=== PATIENT | female | born 1990 | race Caucasian/White ===

== ENCOUNTER → 2018-03-15 | Outpatient (CLI) | payer BC ==
[2018-03-15 17:51] LABS: BASO # 0.1 10^3/uL (0.0-0.2); BASO % 0.8 % (0.0-1.0); EOS # 0.2 10^3/uL (0.0-0.50); EOS % 1.6 % (0.0-3.0); HEMATOCRIT 41.1 % (36.0-47.0); IMMATURE GRANULOCYTE % 0.4 % (0-3.0); LYMPH # 1.8 10^3/uL (1.5-6.5); LYMPH % 16.4 % (24.0-44.0); MEAN CORPUSCULAR HEMOGLOBIN 32.7 pg (27.0-33.0); MEAN CORPUSCULAR HGB CONC 34.1 g/dl (32.0-36.5); MONO # 0.9 10^3/uL (0.0-0.8); MONO % 8.2 % (0.0-5.0); NEUTROPHILS % 72.6 % (36.0-66.0); PLATELET COUNT, AUTOMATED 241 10^3/uL (150-450); RED BLOOD COUNT 4.28 10^6/uL (4.00-5.40); RED CELL DISTRIBUTION WIDTH 12.4 % (11.5-14.5); WHITE BLOOD COUNT 11.1 10^3/uL (4.0-10.0)
[2018-03-15 18:00] LABS: FREE T4 1.05 NG/DL (0.76-1.46)
[2018-03-15 18:16] LABS: PROLACTIN 20.1 NG/ML
== END ==
LOC: M WUC 12:43
DX: N92.1 Excessive and frequent menstruation with irregular cycle (principal)
CPT/HCPCS: 84146

== ENCOUNTER → 2018-10-23 | Outpatient (REF) | payer BC ==
[2018-10-23 18:19] LABS: HEMOGLOBIN 12.9 g/dl (12.0-15.5); MEAN CORPUSCULAR HEMOGLOBIN 30.5 pg (27.0-33.0); MEAN CORPUSCULAR HGB CONC 33.1 g/dl (32.0-36.5); MEAN CORPUSCULAR VOLUME 92.2 fl (80.0-96.0); PLATELET COUNT, AUTOMATED 235 10^3/uL (150-450); RED BLOOD COUNT 4.23 10^6/uL (4.00-5.40)
[2018-10-23 19:08] LABS: HCG, SERUM QUANTITATIVE 1286 MIU/ML
[2018-10-24 10:11] LABS: RUBELLA IgG QUALITATIVE IMMUNE (IMMUNE)
[2018-10-24 10:39] LABS: HEPATITIS C VIRUS ABY INDEX < 0.0 INDEX (<0.8)
[2018-10-24 12:03] LABS: HIV 1&2 SCREEN CENTAUR NEGATIVE (NEGATIVE)
== END ==
LOC: M LAB REF 16:50
PROVIDERS: ATTEND Nurse Practitioner Women's Health
DX: O36.80X0 Pregnancy with inconclusive fetal viability, not applicable or unspecified (principal); Z32.01 Encounter for pregnancy test, result positive

== ENCOUNTER → 2018-11-16 | Outpatient (CLI) | payer BC ==
--- NOTE | 2018-11-16 15:32 | REP ---
Clinical: Vaginal bleeding. Threatened . Technique: Transabdominal first trimester obstetrical ultrasound with color Doppler evaluation. Findings: Anteverted uterus measures 11.6 x 4.9 x 7.4 cm. Gestational sac with pole noted. CRL of 10.6 mm corresponds to 7 weeks 2 days gestational age, but no cardiac activity is appreciated and findings are compatible with demise. Maternal ovaries are normal in appearance. Right ovary measures 3.1 x 1.7 x 2.8 cm. Left ovary measures 3.2 x 2.1 x 2.3 cm with 1.9 cm corpus luteal cyst. Impression: Findings compatible with demise. Electronically Signed by Galindo Lyons MD 11/16/2018 03:22 P
== END ==
LOC: M RAD 14:37
PROVIDERS: ATTEND Nurse Practitioner Women's Health
DX: O20.0 Threatened abortion (principal)

== ENCOUNTER → 2018-11-26 | Outpatient (REF) | payer BC | LOC: M LAB REF 12:48 | PROVIDERS: ATTEND Nurse Practitioner Women's Health | DX: O02.1 Missed abortion (principal); Z3A.01 Less than 8 weeks gestation of pregnancy ==

== ENCOUNTER → 2018-12-03 | Outpatient (REF) | payer BC | LOC: M LAB REF 12:28 | PROVIDERS: ATTEND Nurse Practitioner Women's Health | DX: O02.1 Missed abortion (principal) ==

== ENCOUNTER → 2019-05-02 | Outpatient (CLI) | payer OTHER | LOC: M PLALAB 14:29 | PROVIDERS: ATTEND Advanced Practice Midwife | DX: O36.80X0 Pregnancy with inconclusive fetal viability, not applicable or unspecified (principal); Z3A.00 Weeks of gestation of pregnancy not specified ==

== ENCOUNTER → 2019-05-09 | Outpatient (CLI) | payer OTHER ==
--- NOTE | 2019-05-09 10:04 | REP ---
FIRST TRIMESTER ULTRASOUND: Real-time sonographic evaluation of the gravid uterus performed utilizing transabdominal technique. There is a single living intrauterine gestation. The estimated gestational age is 9 weeks 0 days based on a crown-rump length of 23 mm. EDC 12/12/2019. heart rate 179 beats per minute. Subchorionic hemorrhage is seen inferiorly measuring 3.0 x 2.2 x 5.0 cm. No maternal adnexal region abnormality is seen. Electronically Signed by Edd Berger MD 05/09/2019 01:41 P
== END ==
LOC: M RAD 09:04
PROVIDERS: ATTEND Advanced Practice Midwife
DX: O36.80X0 Pregnancy with inconclusive fetal viability, not applicable or unspecified (principal); O20.8 Other hemorrhage in early pregnancy; Z3A.09 9 weeks gestation of pregnancy

== ENCOUNTER → 2019-05-31 | Outpatient (CLI) | payer OTHER ==
[2019-05-31 18:14] LABS: BASO # 0.1 10^3/uL (0.0-0.2); BASO % 0.4 % (0.0-1.0); EOS # 0.2 10^3/uL (0.0-0.5); EOS % 1.4 % (0.0-3.0); HEMATOCRIT 43.2 % (36.0-47.0); HEMOGLOBIN 14.2 g/dl (12.0-15.5); LYMPH # 1.2 10^3/uL (1.5-5.0); LYMPH % 10.4 % (24.0-44.0); MEAN CORPUSCULAR HEMOGLOBIN 31.8 pg (27.0-33.0); MEAN CORPUSCULAR HGB CONC 32.9 g/dl (32.0-36.5); MEAN CORPUSCULAR VOLUME 96.9 fl (80.0-96.0); MONO # 0.8 10^3/uL (0.0-0.8); NEUTROPHILS # 9.2 10^3/uL (1.5-8.5); NEUTROPHILS % 80.3 % (36.0-66.0); PLATELET COUNT, AUTOMATED 215 10^3/uL (150-450); RED BLOOD COUNT 4.46 10^6/uL (4.00-5.40); WHITE BLOOD COUNT 11.5 10^3/uL (4.0-10.0)
[2019-05-31 19:12] LABS: HEPATITIS C VIRUS ABY INDEX < 0.0 INDEX (<0.8); HIV 1&2 SCREEN CENTAUR NEGATIVE (NEGATIVE); RUBELLA IgG QUALITATIVE IMMUNE (IMMUNE)
[2019-05-31 20:16] LABS: CHLAMYDIA DNA AMPLIFICATION NEGATIVE (NEGATIVE); GC DNA AMPLIFICATION NEGATIVE (NEGATIVE)
== END ==
LOC: M PLALAB 15:15
PROVIDERS: ATTEND Advanced Practice Midwife
DX: Z34.81 Encounter for supervision of other normal pregnancy, first trimester (principal); Z3A.00 Weeks of gestation of pregnancy not specified

== ENCOUNTER → 2019-07-02 | Outpatient (REF) | payer OTHER | LOC: M SFHCWAGY 16:48 | PROVIDERS: ATTEND Advanced Practice Midwife | DX: Z34.92 Encounter for supervision of normal pregnancy, unspecified, second trimester (principal) ==

== ENCOUNTER → 2019-07-23 | Outpatient (CLI) | payer OTHER ==
--- NOTE | 2019-07-23 10:22 | REP ---
OBSTETRIC SONOGRAPHY: HISTORY: Supervision of for anatomy. FINDINGS: Scanning through the gravid uterus demonstrates a single living intrauterine gestation in a cephalic lie. motion is observed and heart rate is recorded at 158 beats per minute. A posterior grade 1 placenta is seen without evidence of previa or abruption. Amniotic fluid is subjectively normal. Closed cervical length is measured at 4.2 cm, viewed transabdominally. No extrauterine abnormalities observed. There is a 2.2 cm hypoechoic area in the anterior uterine myometrium which may be a small fibroid. No anomaly is seen. The following anatomic structures are identified and felt to be unremarkable: cranium, choroid plexus, cavum, cerebellum posterior and fossa, nuchal fold face and profile, four-chamber heart with left and right ventricular outflow tract views, diaphragm, left-sided stomach, abdominal wall cord insertion, three-vessel cord, kidneys and bladder, spine, upper and lower extremities. Biometry Chart: BPD 4.4 cm = 19 weeks 2 days HC 17.4 cm = 20 weeks 0 days AC 16.3 cm = 21 weeks 3 days FL 3.2 cm = 20 weeks 0 days HL 3.0 cm = 19 weeks 6 days HC/AC ratio normal 1.07 Cephalic index normal 0.68 (0.70-0.86). Estimated weight 364 grams, 0 pounds 12 ounces, 79th percentile for 19 weeks 5 days. IMPRESSION: Viable single intrauterine gestation at 19 week 6 days by today's composite criteria. Expected gestational age estimate based on prior sonography is 19 weeks 5 days. DAVID by prior sonography December 12, 2019. anatomic survey is felt to be complete.
== END ==
LOC: M WHC 07:51
PROVIDERS: ATTEND Advanced Practice Midwife
DX: Z34.92 Encounter for supervision of normal pregnancy, unspecified, second trimester (principal); Z3A.19 19 weeks gestation of pregnancy

== ENCOUNTER → 2019-09-17 | Outpatient (REF) | payer OTHER ==
[2019-09-17 14:09] LABS: HEMATOCRIT 43.3 % (36.0-47.0); HEMOGLOBIN 14.6 g/dl (12.0-15.5); MEAN CORPUSCULAR HEMOGLOBIN 32.7 pg (27.0-33.0); MEAN CORPUSCULAR HGB CONC 33.7 g/dl (32.0-36.5); MEAN CORPUSCULAR VOLUME 97.1 fl (80.0-96.0); PLATELET COUNT, AUTOMATED 190 10^3/uL (150-450); RED BLOOD COUNT 4.46 10^6/uL (4.00-5.40); WHITE BLOOD COUNT 11.4 10^3/uL (4.0-10.0)
== END ==
LOC: M PLALAB 08:51
PROVIDERS: ATTEND Advanced Practice Midwife
DX: Z36.89 Encounter for other specified antenatal screening (principal); Z3A.00 Weeks of gestation of pregnancy not specified

== ENCOUNTER → 2019-10-24 | Outpatient (REF) | payer OTHER ==
[~2019-10-24] MED LIST: PRENTAB9 PO
[2019-10-24 15:51] LABS: ALT/SGPT 26 U/L (12-78); BILIRUBIN,TOTAL 0.3 MG/DL (0.2-1.0); CREATININE FOR GFR 0.54 MG/DL (0.55-1.30); GLOMERULAR FILTRATION RATE > 60.0 (>60); HEMATOCRIT 46.1 % (36.0-47.0); HEMOGLOBIN 15.7 g/dl (12.0-15.5); LDH LACTATE DEHYDROGENASE 134 U/L (84-246); MEAN CORPUSCULAR HEMOGLOBIN 32.5 pg (27.0-33.0); MEAN CORPUSCULAR HGB CONC 34.1 g/dl (32.0-36.5); MEAN CORPUSCULAR VOLUME 95.4 fl (80.0-96.0); PLATELET COUNT, AUTOMATED 164 10^3/uL (150-450); RED BLOOD COUNT 4.83 10^6/uL (4.00-5.40); URIC ACID 4.7 MG/DL (2.6-6.0); WHITE BLOOD COUNT 10.1 10^3/uL (4.0-10.0)
[2019-10-24 16:17] LABS: CREATININE,RANDOM URINE 22.1 MG/DL; TOTAL PROTEIN,RANDOM URINE 5.6 MG/DL (0.0-12.0)
== END ==
LOC: M PLALAB 13:50
PROVIDERS: ATTEND Specialist
DX: O14.90 Unspecified pre-eclampsia, unspecified trimester (principal)

== ENCOUNTER → 2019-10-25 | Outpatient (CLI) | payer OTHER ==
--- NOTE | 2019-10-25 09:17 | REPVR ---
PROCEDURE INFORMATION: Exam: MR Lumbar Spine Without Contrast. Exam date and time: 10/25/2019 8:12 AM Age: 29 years old Clinical indication: Condition or disease; Patient HX: 32 weeks , HX neurofibromatosis, eval for epidural; Additional info: Preg 32w, eval for possible epidural TECHNIQUE: Imaging protocol: Multiplanar magnetic resonance images of the lumbar spine without intravenous contrast. COMPARISON: No relevant prior studies available. FINDINGS: Vertebrae: Vertebral body heights are intact. Alignment is maintained. No pars defect is identified. Spinal cord: The conus is unremarkable in appearance, with its tip at the L1 level. L1-L2: No significant disc displacement. No lesion identified in the neural foramina. L2-L3: No significant disc displacement. No lesion identified in the neural foramina. L3-L4: No significant disc displacement. No lesion identified in the neural foramina. L4-L5: No significant disc displacement. No lesion identified in the neural foramina. L5-S1: No significant disc displacement. No lesion identified in the neural foramina. Other bones/joints: No lesion is identified in the spinal canal. There is no significant dural ectasia. Reproductive: Gravid uterus is noted. Soft tissues: Unremarkable. Other findings: Signal in the discs is fairly preserved. IMPRESSION: No significant abnormality. Electronically signed by: Jackson Wheeler On 10/25/2019 09:17:37 AM
== END ==
LOC: M RAD 10-21 13:12
PROVIDERS: ATTEND Advanced Practice Midwife
DX: O99.353 Diseases of the nervous system complicating pregnancy, third trimester (principal); Q85.01 Neurofibromatosis, type 1; Z3A.32 32 weeks gestation of pregnancy

== ENCOUNTER 2019-10-31 12:11 | Outpatient (CLI) | payer OTHER ==
[~2019-10-31] VITALS: Ht 172.7 cm; Wt 70.2 kg
[2019-10-31 12:42] VITALS: BP 143/96
[2019-10-31 12:58] VITALS: BP 129/88
[2019-10-31] MEDS ORDERED: PRENTAB9 PO (13:04)
[2019-10-31 13:13] VITALS: BP 127/93
[2019-10-31 13:28] LABS: HEMATOCRIT 41.5 % (36.0-47.0); HEMOGLOBIN 14.4 g/dl (12.0-15.5); MEAN CORPUSCULAR HEMOGLOBIN 32.6 pg (27.0-33.0); MEAN CORPUSCULAR HGB CONC 34.7 g/dl (32.0-36.5); MEAN CORPUSCULAR VOLUME 93.9 fl (80.0-96.0); PLATELET COUNT, AUTOMATED 135 10^3/uL (150-450); RED BLOOD COUNT 4.42 10^6/uL (4.00-5.40); WHITE BLOOD COUNT 7.7 10^3/uL (4.0-10.0)
[2019-10-31 13:49] LABS: ALT/SGPT 28 U/L (12-78); BILIRUBIN,TOTAL 0.2 MG/DL (0.2-1.0); CREATININE FOR GFR 0.59 MG/DL (0.55-1.30); GLOMERULAR FILTRATION RATE > 60.0 (>60); LDH LACTATE DEHYDROGENASE 134 U/L (84-246); URIC ACID 5.1 MG/DL (2.6-6.0)
[2019-10-31 14:04] VITALS: BP 140/95
[2019-10-31 14:24] VITALS: BP 122/81
--- NOTE | 2019-10-31 15:25 | IPNPDOC ---
Obstetrical Progress Note Date of Service Oct 31, 2019 Subjective 21-year-old 1 presents at for evaluation for preeclampsia/gestational hypertension. She had severely elevated blood pressures today in the office. Objective Vital Signs Date Time Temp Pulse Resp B/P (MAP) Pulse Ox O2 Delivery O2 Flow Rate FiO2 10/31/19 14:04 68 18 140/95 (110) Assessment Variability: Moderate Heart Rate Tracing: Category I Assessment and Plan Age: 29 : 1 Status: Reassuring Additional Comments 29-year-old 1 with gestational hypertension. Her preeclamptic labs are normal, blood pressure at the normal to mild range. Discussed her diagnoses. Plan for weekly appointment with nonstress tests. Induction labor by 37 weeks. -Home with labor precautions and preeclampsia precautions WILBERT OLVERA MD. Oct 31, 2019 15:25
--- NOTE | 2019-10-31 16:02 | REP ---
OB ULTRASOUND: Real-time sonographic evaluation of gravid uterus performed. There is a single living intrauterine gestation, estimated gestational age 34 weeks 0 days, EDC 12/12/2019. Today's measurements indicate appropriate growth. BPD 85 mm = 34 weeks 2 days, 53rd percentile HC 314 mm = 35 weeks 2 days, 68th percentile AC 301 mm = 34 weeks 0 days, 51st percentile Femur length 62 mm = 32 weeks 2 days, 24th percentile HC/AC ratio 1.04, within normal range 0.94-1.13. Estimated weight 224 grams, 40th percentile. heart rate 141 beats per minute. Amniotic fluid within normal limits, LUIS FELIPE 12.1, normal range 8.1-24.8. Biophysical profile score 8/8. S/D ratio 2.90, normal range 2.0-3.0. RI 0.66, normal range 0.59-0.75. Today, the four-chamber heart, stomach, kidneys and bladder, as well as spine are visualized and are grossly unremarkable. position vertex. Placenta is posterior and grade 1 with no previa or abruption. Electronically Signed by Edd Berger MD 11/05/2019 06:13 P
== END 2019-10-31 14:55 | disposition home or self-care (01) ==
LOC: M LDO 12:11
PROVIDERS: ATTEND Obstetrics & Gynecology
DX: O13.3 Gestational [pregnancy-induced] hypertension without significant proteinuria, third trimester (principal); Z3A.34 34 weeks gestation of pregnancy
CPT/HCPCS: 36415; 59025; 76816; 76819; 76820; 82247; 82565; 83615; 84450; 84460; 84550; 85027; G0378; G0463

== ENCOUNTER 2019-11-08 16:45 | Inpatient (IN) | payer OTHER ==
[2019-11-08] VITALS (7 sets, daily range): BP systolic 121–171; BP diastolic 71–92
[~2019-11-08] VITALS: Ht 147.3 cm; Wt 71.0 kg
[~2019-11-08 16:45] MED LIST changes: -ACET-683 PO; -IBUP80TA PO; -LABE20TAB PO; -MAPA500T2 PO; +ceFAZolin SOD 1 GM in D5W MINI-BAG PLUS 50 ML IV SCH
[2019-11-08] MEDS ORDERED: MAPA500T2 PO (17:07)
--- NOTE | 2019-11-08 17:44 | IPNPDOC ---
Text Note Date of Service The patient was seen on 11/08/19. NOTE Outpatient 29yo DAVID 12/12/2019. Presents from office @ 35w1d with elevated blood pressures, severe range 170/112. Reports mild headache but no visual disturbances. States she thinks she feels off because she hasn't eaten much today and feels nauseated. Hx significant for neurofibromatosis requiring brain surgery. Dx with gestational hypertension at 34wks. BP here 152/88 Cat I tracing. Rare mild UC Preeclamptic panel and urine ratio ordered Will consult physician with results. VS,Fishbone, I+O VS, Fishbone, I+O Vital Signs Date Time Temp Pulse Resp B/P (MAP) Pulse Ox O2 Delivery O2 Flow Rate FiO2 11/08/19 17:11 98.4 82 18 152/88 (109) Emily Barraza CNM Nov 08, 2019 17:43
[2019-11-08] MEDS ORDERED: BETAMETHASONE SOLUSPAN 6MG/ML 5ML VIAL (J0702 PER 3MG) IM SCH (18:00)
[2019-11-08 18:13] LABS: HEMATOCRIT 41.6 % (36.0-47.0); HEMOGLOBIN 14.2 g/dl (12.0-15.5); MEAN CORPUSCULAR HEMOGLOBIN 32.3 pg (27.0-33.0); MEAN CORPUSCULAR HGB CONC 34.1 g/dl (32.0-36.5); MEAN CORPUSCULAR VOLUME 94.8 fl (80.0-96.0); PLATELET COUNT, AUTOMATED 144 10^3/uL (150-450); RED BLOOD COUNT 4.39 10^6/uL (4.00-5.40); WHITE BLOOD COUNT 10.8 10^3/uL (4.0-10.0)
[2019-11-08 18:18] LABS: CREATININE,RANDOM URINE 74.7 MG/DL; TOTAL PROTEIN,RANDOM URINE 48.6 MG/DL (0.0-12.0)
[2019-11-08 18:32] LABS: ALT/SGPT 22 U/L (12-78); BILIRUBIN,TOTAL 0.3 MG/DL (0.2-1.0); CREATININE FOR GFR 0.55 MG/DL (0.55-1.30); GLOMERULAR FILTRATION RATE > 60.0 (>60); LDH LACTATE DEHYDROGENASE 140 U/L (84-246); URIC ACID 5.1 MG/DL (2.6-6.0)
--- NOTE | 2019-11-08 18:58 | IPNPDOC ---
Text Note Date of Service The patient was seen on 11/08/19. NOTE Outpatient Pt has had 2 severe range pressures. Reports headache is better now that she's eaten. Cat I tracing Dr Ruiz updated on pt status. Betamethasone initiated, labetalol PO BID initiated. Urine ratio 0.65. Remainder of labs WNL Pt informed she will be staying at least overnight and probably be delivered over the weekend. VS,Fishbone, I+O VS, Fishbone, I+O Laboratory Tests 11/08/19 18:00 Vital Signs Date Time Temp Pulse Resp B/P (MAP) Pulse Ox O2 Delivery O2 Flow Rate FiO2 11/08/19 17:11 98.4 82 18 152/88 (109) Emily Barraza CNM Nov 08, 2019 18:58
[2019-11-08] MEDS ORDERED: LABETALOL 200 MG TAB PO SCH (19:00)
--- NOTE | 2019-11-08 20:17 | HPEPDOC ---
Obstetrical History & Physical General Date of Admission Nov 08, 2019 at 19:47 History of Present Illness Chief Complaint: Pre-eclamsia Age: 29 : 2 Term: 0 Pre-term: 0 Abortions: 1 Livin Care Care: Good Care Dating Final EDC: Dec 12, 2019 Final EDC by: 1st trimester (US) EGA at Admission: 35 (+1) Antepartum Course Pre- weight (lbs.): 135 Admission Weight (lbs.): 157 Past Medical History Past Obstetrical History : Past Obstetrical History: Primgravida LAB HEAD History: Spontaneous Past Medical History Medical History Neurofibromatosis Surgical History: Other (Brain surgery 1999) Family History Significant Family History: Heart disease Social History Marital Status: Family situation: Spouse/partner home Psychosocial History: No pertinent psych hx * Smoker: non-smoker Alcohol: Denies Drugs: denies Abuse Violence Screening Have you been hit/kicked/slapp: No Have you been sexually assault: No Imunizations Tdap status: current Allergies Coded Allergies: Penicillins (Verified Adverse Reaction, Mild, vomitting, 11/08/19) Medications Scheduled No.137/Iron/Folic Acd ( Vitamin Tablet) 1 Each Tablet, 1 TAB PO DAILY Scheduled PRN Acetaminophen (Mapap) 500 Mg Tablet, 1,000 MG PO PRN PRN for PAIN OR FEVER Physical Examination Physical Examination GENERAL: Alert and oriented times three. BREAST: . ABDOMEN: Gravid and non-tender to touch. FETUS: Is vertex (VTX) by bedside sono, fetus is vertex (VTX) by Ant. HEART RATE: Regular rate and rhythm. LUNGS: Clear to auscultation (CTA). EXTREMITIES: +1 edema. No clonus. Deep tendon reflexes (DTRs) + 2. Vital Signs/I&O Vital Signs Date Time Temp Pulse Resp B/P (MAP) Pulse Ox O2 Delivery O2 Flow Rate FiO2 11/08/19 19:00 74 130/90 11/08/19 17:11 98.4 18 Laboratory Data 24H LABS Laboratory Tests 2 11/08/19 17:46: Urine Random Creatinine 74.7, Urine Random Total Protein 48.6H 11/08/19 18:00: Nucleated Red Blood Cells % (auto) 0.0, Glomerular Filtration Rate > 60.0, Uric Acid 5.1, Total Bilirubin 0.3, Aspartate Amino Transf (AST/SGOT) 21, Alanine Aminotransferase (ALT/SGPT) 22, Lactate Dehydrogenase 140 CBC/BMP Laboratory Tests 11/08/19 18:00 Pertinent Laboratoy Data Blood Type: A+ RBC Antibody Screen: Negative HIV: Negative Hepatitis B: Negative Hepatitis C: Negative Rapid Plasma Reagin: Nonreactive Rubella: Immune Chlamydia/Gonorrhea: Negative Group B Streptococcus: Unknown (pending, obtained 11/08/2019) Glucose Tolerance Test: 60 Anatomy Ultrasound Ultrasound Date: Jul 23, 2019 Placenta Location: Posterior Normal Anatomy: Yes Placenta Previa: No Estimated Weight (grams): 364 (79%) Other Ultrasounds 05/09/19 dating 9w0d DAVID 12/12/2019. FH 179 10/31/2019 growth EGA 34w0d DAVID 12/12/2019 Appropriate growth, 40%. LUIS FELIPE 12.1. BPP 8/8. Vertex Steroid Therapy Steroid Therapy: Yes (initiated 11/08/2019) Vaginal Examination Dilation: None Effacement: 50% Station: -3 Cervical Consistency: Firm Cervical Position: Posterior Presentation: Cephalic presentation (confirmed by bedside sono) Assessment Heart Rate (FHR): 150 Variability: Moderate Accelerations: Positive Decelerations: None Tocometer Contractions: No Multi-drug resistant Organism: No history of MDRO Assessment/Plan Assessment Kelle is a 29-year-old (G)2 para (P)0-0-1-0 at 35+1 weeks by 9-week ultrasound. Presents to Labor and Delivery (L&D) following routine office visit where she was found to have severe range blood pressures. Upon arrival, her pressures were improved but progressed again to severe range. She also reported a headache that resolved with eating. Urine ratio has increased to 0.65 since la week's evaluation. Dr Ruiz consulted. Initiate betamethasone and start induction of labor. Plan Admit and orient. 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 Group B Streptococcus (GBS) pending, obtained 11/08/2019. Labs and intravenous (IV) per unit protocol. Counseled on misoprostol, Pitocin and induction of labor (IOL). Lactated Ringers (LR): Bolus 500 mL, then saline lock. Anticipate normal spontaneous delivery (). C-S as appropriate. Emily Barraza Nov 08, 2019 20:02
[2019-11-08] MEDS: miSOPROStol 50 MCG 1/2 TAB (S0191) SL SCH (21:20)
[2019-11-08] MEDS: PRENATAL VITAMINS CHEWABLE TABLET PO SCH (21:20)
[2019-11-08] MEDS: hydrOXYzine 50 MG TAB PO SCH (23:21)
[2019-11-09] VITALS (49 sets, daily range): BP systolic 87–162; BP diastolic 51–90
[2019-11-09] MEDS: miSOPROStol 50 MCG 1/2 TAB (S0191) SL SCH ×2 (01:49→08:15)
[2019-11-09] MEDS ORDERED: BETAMETHASONE SOLUSPAN 6MG/ML 5ML VIAL (J0702 PER 3MG) IM SCH ×3 (06:00→07:00)
[2019-11-09] MEDS: LR 1,000 ML IV SCH ×3 (08:17→17:14)
[2019-11-09] MEDS: LABETALOL 200 MG TAB PO SCH ×2 (08:58→21:00)
[2019-11-09] MEDS: PRENATAL VITAMINS CHEWABLE TABLET PO SCH (08:58)
[2019-11-09] MEDS: OXYTOCIN DRIP 30 UNITS in IV 1 EA IV SCH ×2 (13:10→19:25)
[2019-11-09] MEDS ORDERED: FENTANYL 2MCG/ML ROPIVACAINE 0.2% IN 0.9% NACL 100ML IVBAG As Ordered ONE (14:37)
[2019-11-09 15:38] LABS: HEMATOCRIT 43.3 % (36.0-47.0); HEMOGLOBIN 14.9 g/dl (12.0-15.5); MEAN CORPUSCULAR HEMOGLOBIN 32.9 pg (27.0-33.0); MEAN CORPUSCULAR HGB CONC 34.4 g/dl (32.0-36.5); MEAN CORPUSCULAR VOLUME 95.6 fl (80.0-96.0); PLATELET COUNT, AUTOMATED 140 10^3/uL (150-450); RED BLOOD COUNT 4.53 10^6/uL (4.00-5.40); WHITE BLOOD COUNT 14.4 10^3/uL (4.0-10.0)
[2019-11-09] MEDS ORDERED: ePHEDrine SULFATE 25 MG/5 ML(5MG/ML) SYRINGE As Ordered ONE (16:31)
[2019-11-09] MEDS: ePHEDrine SULFATE 25 MG/5 ML(5MG/ML) SYRINGE IV PRN ×3 (16:33→16:45)
[2019-11-09] MEDS ORDERED: EPIDURAL COMMENT XX SCH (16:45)
[2019-11-09] MEDS ORDERED: EPIDURAL/PCA KEYS XX PRN (16:45)
[2019-11-09] MEDS ORDERED: ONDANSETRON 4MG/2ML VIAL IV PRN (16:45)
[2019-11-09] MEDS ORDERED: REFRIGERATOR IV KEYS XX PRN (16:45)
[2019-11-09] MEDS ORDERED: NALOXONE INJ 0.4MG/1ML VIAL (J2310 PER 1MG) IV PRN (16:45)
[2019-11-09] MEDS ORDERED: diphenhydrAMINE 50MG/ML VIAL (J1200) IV PRN (16:45)
[2019-11-09] MEDS: FENTANYL/ROPIVACAINE/NACL BAG 100 ML EPIDURAL SCH (16:48)
[2019-11-09] MEDS ORDERED: ceFAZolin SOD 2 GM in IV 1 EA IV ONE (19:15)
[2019-11-09] MEDS: hydrOXYzine 50 MG TAB PO SCH (21:00)
[2019-11-10] VITALS (36 sets, daily range): BP systolic 103–187; BP diastolic 55–106
[2019-11-10] MEDS: LR 1,000 ML IV SCH ×2 (00:12→05:36)
[2019-11-10] MEDS ORDERED: FENTANYL 2MCG/ML ROPIVACAINE 0.2% IN 0.9% NACL 100ML IVBAG As Ordered ONE (01:26)
[2019-11-10] MEDS: FENTANYL/ROPIVACAINE/NACL BAG 100 ML EPIDURAL SCH ×2 (01:30→09:53)
[2019-11-10] MEDS ORDERED: ceFAZolin SOD 1 GM in D5W MINI-BAG PLUS 50 ML IV SCH (07:00)
[2019-11-10 10:41] LABS: CORD GAS ABE A -8.7; CORD GAS HCO3 A 20.7 MEQ/L; CORD GAS O2 SAT A 48.7 %; CORD GAS PCO2 A 57.8 mmHg; CORD GAS PH A 7.171 UNITS; CORD GAS PO2 A 26.2 mmHg; CORD GAS SBC A 16.6 MEQ/L; CORD GAS TCO2 A 22.4 MEQ/L
[2019-11-10 10:43] LABS: VENOUS BASE EXCESS -5.1 (-2.0-2.0); VENOUS HCO3 20.3 MEQ/L (23.0-27.0); VENOUS O2 SATURATION 77.3 % (60.0-80.0); VENOUS PARTIAL PRESSURE CO2 39.3 mmHg (38.0-50.0); VENOUS PARTIAL PRESSURE O2 34.7 mmHg (30.0-50.0); VENOUS PH 7.331 UNITS (7.330-7.430); VENOUS STANDARD HCO3 19.8 MEQ/L; VENOUS TOTAL CO2 21.5 MEQ/L (24.0-28.0)
[2019-11-10] MEDS ORDERED: ACETAMINOPHEN TAB 650MG DOSE (2X325MG) PO PRN (11:00)
[2019-11-10] MEDS ORDERED: ACETAMINOPHEN 500 MG TAB PO PRN (11:00)
[2019-11-10] MEDS ORDERED: IBUPROFEN 600MG TAB PO PRN (11:00)
[2019-11-10] MEDS ORDERED: ONDANSETRON 4MG/2ML VIAL IV PRN (11:00)
[2019-11-10] MEDS ORDERED: OXYTOCIN DRIP 30 UNITS in IV 1 EA IV ONE (11:00)
[2019-11-10] MEDS ORDERED: RHOGAM 300 MCG (1500 IU) INJ (J2790) IM SCH (11:00)
[2019-11-10] MEDS ORDERED: LIDOCAINE 1% MDV 20ML VIAL INFIL ONE (11:00)
[2019-11-10] MEDS ORDERED: DOCUSATE SODIUM 100 MG CAP PO PRN (11:00)
[2019-11-10] MEDS ORDERED: METHYLERGONOVINE MALEATE 0.2 MG TAB PO PRN (11:00)
[2019-11-10] MEDS ORDERED: MEASLES,MUMPS,RUBELLA VACCINE INJ (MMR-II) (90707) SC SCH (11:00)
[2019-11-10] MEDS ORDERED: DIBUCAINE 1% OINTMENT 30GM TOP PRN (11:00)
[2019-11-10] MEDS: IBUPROFEN 800 MG TAB PO PRN ×2 (12:57→21:53)
[2019-11-10] MEDS ORDERED: SLF 3 ML SYR IV PRN (14:15)
[2019-11-10] MEDS: SLF 3 ML SYR IV SCH (19:43)
[2019-11-11 05:30] VITALS: BP 140/82
[2019-11-11] MEDS: SLF 3 ML SYR IV SCH ×3 (06:13→21:03)
[2019-11-11] MEDS: PRENATAL VITAMINS CHEWABLE TABLET PO SCH (07:19)
[2019-11-11 09:11] VITALS: BP 148/87
[2019-11-11] MEDS: LABETALOL 200 MG TAB PO SCH ×2 (09:11→20:59)
[2019-11-11 10:40] VITALS: BP 128/80
[2019-11-11 17:27] VITALS: BP 137/86
[2019-11-12 05:50] VITALS: BP 152/87
[2019-11-12] MEDS: SLF 3 ML SYR IV SCH (05:55)
[2019-11-12] MEDS ORDERED: LABE20TAB PO (08:49)
[2019-11-12] MEDS ORDERED: IBUP80TA PO (08:49)
[2019-11-12] MEDS ORDERED: ACET-683 PO (08:49)
[2019-11-12] MEDS: PRENATAL VITAMINS CHEWABLE TABLET PO SCH (09:27)
[2019-11-12 09:31] VITALS: BP 146/90
[2019-11-12] MEDS: LABETALOL 200 MG TAB PO SCH (09:31)
--- NOTE | 2019-11-13 10:13 | DN ---
DATE OF DELIVERY: 11/10/2019 PREDELIVERY DIAGNOSIS: 35-1/7 weeks gestation, preeclampsia, labor induction. POSTDELIVERY DIAGNOSIS: Delivered. PROCEDURE: Spontaneous vaginal delivery. [employer]: Joao Ruiz MD ANESTHESIA: Epidural. ESTIMATED BLOOD LOSS: 300 mL. FINDINGS: 5 pound 5 ounce male infant. score 5, 7, and 9. DELIVERY SUMMARY: After 90 minute second stage, the patient had spontaneously delivery of a 5 pound 5 ounce male , score 5, 7, and 9 under epidural anesthesia. There was no nuchal cord. Right compound arm was noted. The shoulders delivered with ease. The infant was handed to the mother. The cord was doubly clamped and cut. The placenta delivered spontaneously and appeared to be intact. The patient received intravenous (IV) pitocin after delivery of the placenta. A second-degree perineal laceration was repaired with #2-0 chromic under local anesthesia in the usual fashion. Sponge and needle counts were correct.
== END 2019-11-12 13:35 | disposition home or self-care (01) | DRG 560 ==
LOC: M LDO 16:45 → M LDI 19:47 → M OBS 11-10 13:42
PROVIDERS: ADMIT Advanced Practice Midwife; ATTEND Advanced Practice Midwife
PROC: 3E0P7VZ Introduction of Hormone into Female Reproductive, Via Natural or Artificial Opening (ICD-10-PCS; 2019-11-08)
PROC: 10E0XZZ Delivery of Products of Conception, External Approach (ICD-10-PCS; principal; 2019-11-10)
PROC: 0KQM0ZZ Repair Perineum Muscle, Open Approach (ICD-10-PCS; 2019-11-10)
DX: O14.24 HELLP syndrome, complicating childbirth (principal); O32.6XX0 Maternal care for compound presentation, not applicable or unspecified; Z37.0 Single live birth; Z3A.35 35 weeks gestation of pregnancy; O70.1 Second degree perineal laceration during delivery

== ENCOUNTER → 2019-11-08 | Outpatient (REF) | payer OTHER ==
[~2019-11-08] MED LIST changes: +ACET-683 PO; +IBUP80TA PO; +LABE20TAB PO; +MAPA500T2 PO
== END ==
LOC: M SFHCWAGY 16:43
PROVIDERS: ATTEND Advanced Practice Midwife
DX: O13.3 Gestational [pregnancy-induced] hypertension without significant proteinuria, third trimester (principal)

== ENCOUNTER → 2020-02-04 | Outpatient (REF) | payer OTHER ==
[~2020-02-04] MED LIST changes: +ACET-683 PO; +IBUP80TA PO; +LABE20TAB PO; +MAPA500T2 PO; -ceFAZolin SOD 1 GM in D5W MINI-BAG PLUS 50 ML IV SCH
== END ==
LOC: M SFHCWAGY 13:29
PROVIDERS: ATTEND Specialist
DX: Z12.4 Encounter for screening for malignant neoplasm of cervix (principal)
CPT/HCPCS: 87624; G0123

== ENCOUNTER → 2020-06-12 | Outpatient (CLI) | payer OTHER | LOC: M LABSMTC 13:08 | PROVIDERS: ATTEND Family Medicine | DX: Z20.822 Contact with and (suspected) exposure to COVID-19 (principal) ==

== ENCOUNTER → 2021-07-19 | Outpatient (CLI) | payer OTHER ==
[2021-07-19 15:24] LABS: BASO # 0.1 10^3/uL (0.0-0.2); BASO % 0.6 % (0.0-1.0); EOS # 0.2 10^3/uL (0.0-0.5); EOS % 1.7 % (0.0-3.0); HEMATOCRIT 45.6 % (36.0-47.0); HEMOGLOBIN 15.4 g/dl (12.0-15.5); LYMPH # 1.5 10^3/uL (1.5-5.0); LYMPH % 12.3 % (24.0-44.0); MEAN CORPUSCULAR HEMOGLOBIN 31.8 pg (27.0-33.0); MEAN CORPUSCULAR HGB CONC 33.8 g/dl (32.0-36.5); MONO # 0.8 10^3/uL (0.0-0.8); MONO % 6.4 % (2.0-8.0); NEUTROPHILS # 9.4 10^3/uL (1.5-8.5); NEUTROPHILS % 78.7 % (36.0-66.0); PLATELET COUNT, AUTOMATED 252 10^3/uL (150-450); RED BLOOD COUNT 4.85 10^6/uL (4.00-5.40)
[2021-07-19 16:47] LABS: GC DNA AMPLIFICATION NEGATIVE (NEGATIVE)
[2021-07-19 18:18] LABS: TOTAL PROTEIN,RANDOM URINE 5.4 MG/DL (0.0-12.0)
[2021-07-19 18:24] LABS: ALT/SGPT 23 U/L (12-78); BILIRUBIN,TOTAL 0.2 MG/DL (0.2-1.0); BLOOD UREA NITROGEN 7 MG/DL (7-18); CALCIUM LEVEL 9.6 MG/DL (8.5-10.1); CARBON DIOXIDE LEVEL 30 MEQ/L (21-32); CHLORIDE LEVEL 105 MEQ/L (98-107); CREATININE FOR GFR 0.61 MG/DL (0.55-1.30); GLOMERULAR FILTRATION RATE > 60.0 (>60); GLUCOSE, FASTING 89 MG/DL (70-100); POTASSIUM SERUM 4.5 MEQ/L (3.5-5.1); SODIUM LEVEL 140 MEQ/L (136-145); TOTAL PROTEIN 6.9 GM/DL (6.4-8.2)
[2021-07-19 19:08] LABS: HEPATITIS C VIRUS ABY INDEX 0.1 INDEX (<0.8); HIV 1&2 SCREEN CENTAUR NEGATIVE (NEGATIVE)
== END ==
LOC: M PLALAB 14:11
PROVIDERS: ATTEND Obstetrics & Gynecology
DX: Z34.90 Encounter for supervision of normal pregnancy, unspecified, unspecified trimester (principal)

== ENCOUNTER → 2021-08-20 | Outpatient (CLI) | payer OTHER | LOC: M PLALAB 11:47 | PROVIDERS: ATTEND Obstetrics & Gynecology | DX: Z34.81 Encounter for supervision of other normal pregnancy, first trimester (principal) ==

== ENCOUNTER → 2021-10-07 | Outpatient (CLI) | payer OTHER | LOC: M WHC 07:36 | PROVIDERS: ATTEND Obstetrics & Gynecology | DX: Z34.92 Encounter for supervision of normal pregnancy, unspecified, second trimester (principal); Z3A.20 20 weeks gestation of pregnancy ==

== ENCOUNTER → 2021-11-15 | Outpatient (CLI) | payer OTHER | LOC: M WHC 12:02 | PROVIDERS: ATTEND Obstetrics & Gynecology | DX: Z36.2 Encounter for other antenatal screening follow-up (principal) ==

== ENCOUNTER 2021-11-30 13:56 | Observation (INO) | payer OTHER ==
[~2021-11-30] VITALS: Ht 147.3 cm; Wt 64.3 kg
[2021-11-30] VITALS (9 sets, daily range): BP systolic 115–142; BP diastolic 68–98
[~2021-11-30 13:56] MED LIST changes: -ECOT81TA5 PO; -VITAD400CA FT
[2021-11-30] MEDS ORDERED: HOME MED LIST COMPLETE! XX SCH (14:30)
[2021-11-30] MEDS ORDERED: VITAD400CA FT (14:30)
[2021-11-30] MEDS ORDERED: ECOT81TA5 PO (14:30)
[2021-11-30] MEDS ORDERED: BETAMETHASONE SOLUSPAN 6MG/ML 5ML VIAL (J0702 PER 3MG) IM SCH (15:30)
[2021-11-30 16:18] LABS: HEMOGLOBIN 14.5 g/dl (12.0-15.5); MEAN CORPUSCULAR HEMOGLOBIN 32.5 pg (27.0-33.0); MEAN CORPUSCULAR HGB CONC 35.4 g/dl (32.0-36.5); MEAN CORPUSCULAR VOLUME 91.9 fl (80.0-96.0); PLATELET COUNT, AUTOMATED 160 10^3/uL (150-450); RED BLOOD COUNT 4.46 10^6/uL (4.00-5.40); WHITE BLOOD COUNT 8.1 10^3/uL (4.0-10.0)
[2021-11-30 16:50] LABS: AMPHETAMINES URINE REFLEX NEGATIVE (NEGATIVE); BARBITURATES URINE REFLEX NEGATIVE (NEGATIVE); BENZODIAZEPINES URINE REFLEX NEGATIVE (NEGATIVE); CANNABINOIDS URINE REFLEX NEGATIVE (NEGATIVE); COCAINE METABOLITE URINE REFLE NEGATIVE (NEGATIVE); METHADONE URINE REFLEX NEGATIVE (NEGATIVE); OPIATES URINE REFLEX NEGATIVE (NEGATIVE); PHENCYCLIDINE URINE REFLEX NEGATIVE (NEGATIVE)
[2021-11-30 16:51] LABS: CREATININE,RANDOM URINE 30.3 MG/DL; TOTAL PROTEIN,RANDOM URINE 8.4 MG/DL (0.0-12.0)
[2021-11-30 17:02] LABS: ALT/SGPT 30 U/L (12-78); BILIRUBIN,TOTAL 0.6 MG/DL (0.2-1.0); CREATININE FOR GFR 0.48 MG/DL (0.55-1.30); GLOMERULAR FILTRATION RATE > 60.0 (>60); LDH LACTATE DEHYDROGENASE 245 U/L (84-246); URIC ACID 4.2 MG/DL (2.6-6.0)
[2021-12-01] VITALS (19 sets, daily range): BP systolic 105–184; BP diastolic 57–120
[2021-12-01] MEDS ORDERED: CALCIUM CARBONATE 500 MG CHEW U/D PO PRN (04:40)
== END 2021-12-01 16:50 | disposition home or self-care (01) ==
LOC: M LDO 13:56 → M LDI 13:57 → M LDO 12-01 16:50
PROVIDERS: ADMIT Obstetrics & Gynecology; ATTEND Obstetrics & Gynecology
DX: O36.5930 Maternal care for other known or suspected poor fetal growth, third trimester, not applicable or unspecified (principal); Z87.59 Personal history of other complications of pregnancy, childbirth and the puerperium; O13.3 Gestational [pregnancy-induced] hypertension without significant proteinuria, third trimester; O99.810 Abnormal glucose complicating pregnancy; O43.893 Other placental disorders, third trimester; O99.353 Diseases of the nervous system complicating pregnancy, third trimester; Q85.00 Neurofibromatosis, unspecified; Z3A.28 28 weeks gestation of pregnancy; Z88.0 Allergy status to penicillin; Z79.899 Other long term (current) drug therapy; Z79.82 Long term (current) use of aspirin; Q27.0 Congenital absence and hypoplasia of umbilical artery; Z23 Encounter for immunization
CPT/HCPCS: 36415; 59025; 76815; 76819; 76820; 80307; 82247; 82565; 82570; 82950; 83615; 84156; 84450; 84460; 84550; 85027; 86850; 86900; 86901; 87081; 87426; 96372; J0702

== ENCOUNTER → 2021-11-30 | Outpatient (CLI) | payer OTHER ==
[~2021-11-30] MED LIST changes: +ECOT81TA5 PO; +VITAD400CA FT
== END ==
LOC: M WHC 12:16
PROVIDERS: ATTEND Obstetrics & Gynecology
DX: O36.5920 Maternal care for other known or suspected poor fetal growth, second trimester, not applicable or unspecified (principal); Z3A.28 28 weeks gestation of pregnancy

== ENCOUNTER → 2021-12-03 | Outpatient (CLI) | payer OTHER ==
[~2021-12-03] MED LIST changes: +ACET500P3 PO; +ECOT81TA5 PO; +VITAD400CA FT
== END ==
LOC: M WHC 08:11
PROVIDERS: ATTEND Advanced Practice Midwife
DX: O36.5930 Maternal care for other known or suspected poor fetal growth, third trimester, not applicable or unspecified (principal); Z3A.28 28 weeks gestation of pregnancy

== ENCOUNTER → 2021-12-06 | Outpatient (CLI) | payer OTHER ==
[~2021-12-06] MED LIST changes: -ACET500P3 PO
== END ==
LOC: M WHC 09:32
PROVIDERS: ATTEND Obstetrics & Gynecology
DX: O36.5920 Maternal care for other known or suspected poor fetal growth, second trimester, not applicable or unspecified (principal); Z36.2 Encounter for other antenatal screening follow-up

== ENCOUNTER 2021-12-07 15:43 | Outpatient (CLI) | payer OTHER ==
[~2021-12-07] VITALS: Ht 147.3 cm; Wt 62.7 kg
[2021-12-07 16:23] LABS: HEMATOCRIT 42.4 % (36.0-47.0); HEMOGLOBIN 14.7 g/dl (12.0-15.5); MEAN CORPUSCULAR HEMOGLOBIN 32.5 pg (27.0-33.0); MEAN CORPUSCULAR HGB CONC 34.7 g/dl (32.0-36.5); MEAN CORPUSCULAR VOLUME 93.6 fl (80.0-96.0); PLATELET COUNT, AUTOMATED 207 10^3/uL (150-450); RED BLOOD COUNT 4.53 10^6/uL (4.00-5.40); WHITE BLOOD COUNT 10.9 10^3/uL (4.0-10.0)
[2021-12-07 16:52] LABS: ALT/SGPT 24 U/L (12-78); BILIRUBIN,TOTAL 0.5 MG/DL (0.2-1.0); CREATININE FOR GFR 0.51 MG/DL (0.55-1.30); GLOMERULAR FILTRATION RATE > 60.0 (>60); LDH LACTATE DEHYDROGENASE 179 U/L (84-246); URIC ACID 4.8 MG/DL (2.6-6.0)
[2021-12-07 17:04] LABS: TOTAL PROTEIN,RANDOM URINE 14.8 MG/DL (0.0-12.0)
== END 2021-12-07 18:26 | disposition home or self-care (01) ==
LOC: M LDO 15:43
PROVIDERS: ATTEND Specialist
DX: O16.3 Unspecified maternal hypertension, third trimester (principal); O36.5930 Maternal care for other known or suspected poor fetal growth, third trimester, not applicable or unspecified; Z87.59 Personal history of other complications of pregnancy, childbirth and the puerperium; Z3A.29 29 weeks gestation of pregnancy
CPT/HCPCS: 36415; 59025; 76815; 76820; 76821; 82247; 82565; 82570; 83615; 84156; 84450; 84460; 84550; 85027; G0463

== ENCOUNTER → 2021-12-08 | Outpatient (CLI) | payer OTHER | LOC: M LAB 07:22 | PROVIDERS: ATTEND Advanced Practice Midwife | DX: O99.810 Abnormal glucose complicating pregnancy (principal) ==

== ENCOUNTER → 2021-12-13 | Outpatient (CLI) | payer OTHER | LOC: M WHC 07:59 | PROVIDERS: ATTEND Obstetrics & Gynecology | DX: O36.5930 Maternal care for other known or suspected poor fetal growth, third trimester, not applicable or unspecified (principal); Z3A.30 30 weeks gestation of pregnancy ==

== ENCOUNTER → 2021-12-17 | Outpatient (CLI) | payer OTHER ==
[~2021-12-17] MED LIST changes: +ACET500P3 PO
== END ==
LOC: M WHC 09:01
PROVIDERS: ATTEND Obstetrics & Gynecology
DX: O36.5920 Maternal care for other known or suspected poor fetal growth, second trimester, not applicable or unspecified (principal); Z3A.30 30 weeks gestation of pregnancy

== ENCOUNTER 2021-12-20 09:53 | Outpatient (CLI) | payer OTHER ==
[~2021-12-20] VITALS: Ht 147.3 cm; Wt 63.8 kg
[~2021-12-20 09:53] MED LIST changes: -ACET500P3 PO
[2021-12-20 10:11] VITALS: BP 142/90
[2021-12-20] MEDS ORDERED: ACET500P3 PO (10:15)
[2021-12-20] MEDS ORDERED: HOME MED LIST COMPLETE! XX SCH (10:15)
[2021-12-20 10:40] VITALS: BP 144/106
[2021-12-20] MEDS ORDERED: LACTATED RINGER'S 1000 ML IV ONE (11:20)
== END 2021-12-20 12:07 | disposition other institution (70) ==
LOC: M LDO 09:53
PROVIDERS: ATTEND Advanced Practice Midwife
DX: O36.5930 Maternal care for other known or suspected poor fetal growth, third trimester, not applicable or unspecified (principal); O13.3 Gestational [pregnancy-induced] hypertension without significant proteinuria, third trimester; O35.1XX9 Maternal care for (suspected) chromosomal abnormality in fetus, other fetus; Q85.01 Neurofibromatosis, type 1; Z87.51 Personal history of pre-term labor; Z87.59 Personal history of other complications of pregnancy, childbirth and the puerperium; Z3A.31 31 weeks gestation of pregnancy
CPT/HCPCS: 59025; 87426; G0463

== ENCOUNTER → 2021-12-20 | Outpatient (CLI) | payer OTHER | LOC: M WHC 08:44 | PROVIDERS: ATTEND Obstetrics & Gynecology | DX: O36.5920 Maternal care for other known or suspected poor fetal growth, second trimester, not applicable or unspecified (principal) ==

== ENCOUNTER → 2022-05-09 | Outpatient (REF) | payer OTHER ==
[~2022-05-09] MED LIST changes: +ACET500P3 PO
== END ==
LOC: M SFHCWAGY 10:17
PROVIDERS: ATTEND Obstetrics & Gynecology
DX: Z12.4 Encounter for screening for malignant neoplasm of cervix (principal)

== ENCOUNTER → 2022-10-12 | Outpatient (CLI) | payer OTHER | LOC: M RAD 13:31 | PROVIDERS: ATTEND Obstetrics & Gynecology | DX: L76.82 Other postprocedural complications of skin and subcutaneous tissue (principal) ==

== ENCOUNTER → 2023-06-06 | Outpatient (CLI) | payer OTHER | LOC: M CARPUL 09:59 | PROVIDERS: ATTEND Physician Assistant | DX: R09.89 Other specified symptoms and signs involving the circulatory and respiratory systems (principal); Z82.49 Family history of ischemic heart disease and other diseases of the circulatory system ==

== ENCOUNTER → 2023-11-08 | Outpatient (CLI) | payer BC ==
[2023-11-08 09:06] LABS: BASO # 0.1 10^3/uL (0.0-0.2); BASO % 1.2 % (0.0-1.0); EOS # 0.2 10^3/uL (0.0-0.5); EOS % 2.3 % (0.0-3.0); HEMATOCRIT 38.6 % (36.0-47.0); HEMOGLOBIN 12.4 g/dl (12.0-15.5); LYMPH # 1.5 10^3/uL (1.5-5.0); LYMPH % 20.6 % (24.0-44.0); MEAN CORPUSCULAR HEMOGLOBIN 27.8 pg (27.0-33.0); MEAN CORPUSCULAR HGB CONC 32.1 g/dl (32.0-36.5); MEAN CORPUSCULAR VOLUME 86.5 fl (80.0-96.0); MONO # 0.6 10^3/uL (0.0-0.8); MONO % 8.8 % (2.0-8.0); NEUTROPHILS # 4.9 10^3/uL (1.5-8.5); NEUTROPHILS % 66.8 % (36.0-66.0); PLATELET COUNT, AUTOMATED 249 10^3/uL (150-450); RED BLOOD COUNT 4.46 10^6/uL (4.00-5.40); WHITE BLOOD COUNT 7.3 10^3/uL (4.0-10.0)
[2023-11-08 09:30] LABS: ALBUMIN 3.6 G/DL (3.2-5.2); ALKALINE PHOSPHATASE 47 U/L (46-116); ALT/SGPT 10 U/L (7.0-40); AST/SGOT < 8 U/L (<34); BILIRUBIN,TOTAL 0.3 MG/DL (0.3-1.2); BLOOD UREA NITROGEN 15 MG/DL (9-23); CALCIUM LEVEL 8.9 MG/DL (8.5-10.1); CARBON DIOXIDE LEVEL 27 MMOL/L (20-31); CHLORIDE LEVEL 109 MMOL/L (98-107); CREATININE FOR GFR 0.74 MG/DL (0.55-1.30); FREE T4 1.18 NG/DL (0.89-1.76); GLOMERULAR FILTRATION RATE > 60.0 (>60); GLUCOSE, FASTING 87 MG/DL (60-100); POTASSIUM SERUM 4.3 MMOL/L (3.5-5.1); SODIUM LEVEL 140 MMOL/L (136-145); TOTAL PROTEIN 6.3 G/DL (5.7-8.2)
[2023-11-08 09:31] LABS: PROLACTIN 23.75 NG/ML
== END ==
LOC: M LAB 08:19
PROVIDERS: ATTEND Physician Assistant
DX: O92.6 Galactorrhea (principal)

== ENCOUNTER → 2023-12-15 | Outpatient (CLI) | payer BC | LOC: M RAD 08:27 | PROVIDERS: ATTEND Obstetrics & Gynecology | DX: L76.82 Other postprocedural complications of skin and subcutaneous tissue (principal) ==

== ENCOUNTER → 2024-01-25 | Outpatient (REF) | payer BC ==
[2024-01-27 11:57] LABS: HPV APTIMA Not Detected (Not Detected)
== END ==
LOC: M SFHCWAGY 15:13
PROVIDERS: ATTEND Obstetrics & Gynecology
DX: R87.610 Atypical squamous cells of undetermined significance on cytologic smear of cervix (ASC-US) (principal); R87.5 Abnormal microbiological findings in specimens from female genital organs
CPT/HCPCS: 87624; G0123

== ENCOUNTER → 2024-02-11 | Outpatient (CLI) | payer BC ==
[2024-02-11 09:00] LABS: BASO # 0.1 10^3/uL (0.0-0.2); BASO % 0.9 % (0.0-1.0); EOS # 0.2 10^3/uL (0.0-0.5); EOS % 2.7 % (0.0-3.0); HEMATOCRIT 37.4 % (36.0-47.0); HEMOGLOBIN 11.8 g/dl (12.0-15.5); LYMPH # 1.6 10^3/uL (1.5-5.0); MEAN CORPUSCULAR HGB CONC 31.6 g/dl (32.0-36.5); MEAN CORPUSCULAR VOLUME 85.6 fl (80.0-96.0); MONO # 0.7 10^3/uL (0.0-0.8); MONO % 9.8 % (2.0-8.0); NEUTROPHILS # 4.4 10^3/uL (1.5-8.5); NEUTROPHILS % 63.3 % (36.0-66.0); PLATELET COUNT, AUTOMATED 285 10^3/uL (150-450); RED BLOOD COUNT 4.37 10^6/uL (4.00-5.40)
[2024-02-11 09:31] LABS: LIPASE 33 U/L (12-53)
[2024-02-11 09:33] LABS: ALBUMIN 3.9 G/DL (3.2-5.2); ALKALINE PHOSPHATASE 52 U/L (46-116); ALT/SGPT 16 U/L (7.0-40); AST/SGOT < 8 U/L (<34); BILIRUBIN,DIRECT < 0.1 MG/DL (<0.4); BILIRUBIN,TOTAL 0.4 MG/DL (0.3-1.2); BLOOD UREA NITROGEN 12 MG/DL (9-23); CALCIUM LEVEL 8.9 MG/DL (8.5-10.1); CARBON DIOXIDE LEVEL 28 MMOL/L (20-31); CHLORIDE LEVEL 108 MMOL/L (98-107); CREATININE FOR GFR 0.71 MG/DL (0.55-1.30); GLOMERULAR FILTRATION RATE > 60.0 (>60); GLUCOSE, FASTING 83 MG/DL (60-100); POTASSIUM SERUM 4.5 MMOL/L (3.5-5.1); SODIUM LEVEL 139 MMOL/L (136-145); TOTAL PROTEIN 6.9 G/DL (5.7-8.2)
[2024-02-11 09:34] LABS: FREE T4 1.26 NG/DL (0.89-1.76)
[2024-02-11 09:35] LABS: FOLLICLE STIMULATING HORMONE 6.6 mIU/ML; LUTEINIZING HORMONE 11.1 mIU/ML; THYROID STIMULATING HORMONE 1.773 uIU/ML (0.55-4.78)
== END ==
LOC: M LAB 08:10
PROVIDERS: ATTEND Physician Assistant
DX: R14.0 Abdominal distension (gaseous) (principal)

== ENCOUNTER 2024-03-26 06:15 | Day surgery (SDC) | payer BC ==
[~2024-03-26] VITALS: Ht 144.8 cm; Wt 56.3 kg
[~2024-03-26 06:15] MED LIST changes: +GNP250TA9 PO; +IBUP-1114 PO; +MV/F1CAP PO
[2024-03-26] MEDS ORDERED: NS 1,000 ML IV SCH ×2 (06:20→09:10)
[2024-03-26 06:55] LABS: HEMATOCRIT 36.8 % (36.0-47.0); HEMOGLOBIN 11.8 g/dl (12.0-15.5); MEAN CORPUSCULAR HEMOGLOBIN 27.3 pg (27.0-33.0); MEAN CORPUSCULAR HGB CONC 32.1 g/dl (32.0-36.5); MEAN CORPUSCULAR VOLUME 85.2 fl (80.0-96.0); PLATELET COUNT, AUTOMATED 263 10^3/uL (150-450); RED BLOOD COUNT 4.32 10^6/uL (4.00-5.40); WHITE BLOOD COUNT 7.2 10^3/uL (4.0-10.0)
[2024-03-26] MEDS ORDERED: ceFAZolin 2 GM/D5W 50 ML IV BAG As Ordered ONE (07:40)
[2024-03-26] MEDS: ceFAZolin SOD 2 GM in IV 1 EA IV ONE (07:50)
[2024-03-26] MEDS ORDERED: ONDANSETRON 4MG 2ML VIAL As Ordered ONE (08:13)
[2024-03-26] MEDS ORDERED: MIDAZOLAM INJ 2MG/2ML VIAL As Ordered ONE (08:13)
[2024-03-26] MEDS ORDERED: propofoL 200 MG/20 ML VIAL As Ordered ONE (08:13)
[2024-03-26] MEDS ORDERED: dexmedeTOMIDine (4MCG/ML)200MCG/50ML BTL (PRECEDEX) As Ordered ONE (08:13)
[2024-03-26] MEDS ORDERED: ACETAMINOPHEN 1000MG 100ML IV BAG As Ordered ONE (08:13)
[2024-03-26] MEDS ORDERED: fentaNYL 100 MCG/2 ML INJECTION As Ordered ONE (08:13)
[2024-03-26] MEDS ORDERED: KETOROLAC 60MG 2ML VIAL As Ordered ONE (08:13)
[2024-03-26] MEDS ORDERED: METOCLOPRAMIDE INJ 10MG/2ML VIAL As Ordered ONE (08:13)
[2024-03-26] MEDS ORDERED: LIDOCAINE 2% 100MG/5ML SDV (FOR ANES.) As Ordered ONE (08:13)
[2024-03-26] MEDS ORDERED: oxyCODONE 5MG TAB PO PRN (09:10)
[2024-03-26] MEDS ORDERED: fentaNYL 100 MCG/2 ML INJECTION IV PRN (09:10)
[2024-03-26] MEDS ORDERED: HYDROMORPHONE HCL 0.5 MG/ 0.5 ML SYRINGE IV PRN (09:10)
[2024-03-26] MEDS: LIDOCAINE W/EPINEPHRINE 1% 20ML VIAL As Ordered ONE (09:12)
[2024-03-26] MEDS: ONDANSETRON 4MG 2ML VIAL IV PRN (09:49)
[2024-03-26] MEDS ORDERED: ENDO5TAB PO (10:07)
[2024-03-26] MEDS ORDERED: IBUP80TA PO (10:09)
[2024-03-26] MEDS ORDERED: COLA100C5 PO (10:10)
[2024-03-26 10:31] VITALS: BP 129/80; TEMP 98.7; O2SAT 98
== END 2024-03-26 10:48 | disposition home or self-care (01) ==
LOC: M SDC 06:15
PROVIDERS: ATTEND Obstetrics & Gynecology
DX: N80.30 Endometriosis of pelvic peritoneum, unspecified (principal); E78.5 Hyperlipidemia, unspecified; F43.10 Post-traumatic stress disorder, unspecified; F41.9 Anxiety disorder, unspecified; K58.8 Other irritable bowel syndrome; Z79.899 Other long term (current) drug therapy; Z88.0 Allergy status to penicillin
CPT/HCPCS: 22903; 36415; 81025; 85027; 86850; 86900; 86901; 88307; J0131; J0690; J1100; J1885; J2250; J2405; J2765; J3010

== ENCOUNTER → 2024-05-02 | Outpatient (REF) | payer BC ==
[~2024-05-02] MED LIST changes: +COLA100C5 PO; +ENDO5TAB PO; +PRAZ1CAP PO; -VITAD400CA FT; +VITAD400CA PO
== END ==
LOC: M SFHCWAGY 15:13
PROVIDERS: ATTEND Obstetrics & Gynecology
DX: R87.612 Low grade squamous intraepithelial lesion on cytologic smear of cervix (LGSIL) (principal); N72 Inflammatory disease of cervix uteri

== ENCOUNTER → 2024-05-09 | Outpatient (CLI) | payer BC ==
[~2024-05-09] MED LIST changes: +PROHANCE 279.3MG/ML 15ML VIAL As Ordered ONE
== END ==
LOC: M RAD 08:45
PROVIDERS: ATTEND Physician Assistant
DX: D35.2 Benign neoplasm of pituitary gland (principal)
CPT/HCPCS: 70553; A9576

== ENCOUNTER 2024-05-23 07:47 | Day surgery (SDC) | payer BC ==
[~2024-05-23] VITALS: Ht 144.8 cm; Wt 55.2 kg
[~2024-05-23 07:47] MED LIST changes: +LIDOCAINE 2% 100MG/5ML SDV (FOR ANES.) As Ordered ONE; -PROHANCE 279.3MG/ML 15ML VIAL As Ordered ONE; +propofoL 200 MG/20 ML VIAL As Ordered ONE
[2024-05-23] MEDS ORDERED: fentaNYL 100 MCG/2 ML INJECTION As Ordered ONE (08:03)
[2024-05-23 08:48] VITALS: TEMP 97.4
[2024-05-23 09:20] VITALS: BP 139/86; O2SAT 100
== END 2024-05-23 09:26 | disposition home or self-care (01) ==
LOC: M OPP 07:47
PROVIDERS: ATTEND Surgery
DX: R63.4 Abnormal weight loss (principal); R14.0 Abdominal distension (gaseous); K59.00 Constipation, unspecified; F41.1 Generalized anxiety disorder; F43.10 Post-traumatic stress disorder, unspecified; Z98.51 Tubal ligation status; Z79.899 Other long term (current) drug therapy; Z88.0 Allergy status to penicillin
CPT/HCPCS: 43235; 45378; J3010

== ENCOUNTER → 2024-05-25 | Outpatient (CLI) | payer BC ==
[~2024-05-25] MED LIST changes: -LIDOCAINE 2% 100MG/5ML SDV (FOR ANES.) As Ordered ONE; -propofoL 200 MG/20 ML VIAL As Ordered ONE
[2024-05-25 09:48] LABS: FREE T4 1.26 NG/DL (0.89-1.76); THYROID STIMULATING HORMONE 1.355 uIU/ML (0.55-4.78)
[2024-05-25 09:49] LABS: CORTISOL AM 16.9 UG/DL (4.3-22.4)
== END ==
LOC: M LAB 08:05
PROVIDERS: ATTEND Nurse Practitioner Family
DX: D35.2 Benign neoplasm of pituitary gland (principal)

== ENCOUNTER → 2024-06-17 | Outpatient (CLI) | payer BC ==
[2024-06-17 08:26] LABS: BASO # 0.1 10^3/uL (0.0-0.2); BASO % 1.5 % (0.0-1.0); EOS # 0.2 10^3/uL (0.0-0.5); EOS % 3.4 % (0.0-3.0); HEMATOCRIT 35.2 % (36.0-47.0); HEMOGLOBIN 10.8 g/dl (12.0-15.5); LYMPH # 1.5 10^3/uL (1.5-5.0); LYMPH % 22.3 % (24.0-44.0); MEAN CORPUSCULAR HEMOGLOBIN 24.8 pg (27.0-33.0); MEAN CORPUSCULAR HGB CONC 30.7 g/dl (32.0-36.5); MEAN CORPUSCULAR VOLUME 80.7 fl (80.0-96.0); MONO # 0.6 10^3/uL (0.0-0.8); MONO % 9.3 % (2.0-8.0); NEUTROPHILS # 4.4 10^3/uL (1.5-8.5); NEUTROPHILS % 63.4 % (36.0-66.0); PLATELET COUNT, AUTOMATED 248 10^3/uL (150-450); RED BLOOD COUNT 4.36 10^6/uL (4.00-5.40); WHITE BLOOD COUNT 6.9 10^3/uL (4.0-10.0)
[2024-06-17 08:50] LABS: BLOOD UREA NITROGEN 11 MG/DL (9-23); CALCIUM LEVEL 8.6 MG/DL (8.5-10.1); CARBON DIOXIDE LEVEL 27 MMOL/L (20-31); CHLORIDE LEVEL 106 MMOL/L (98-107); CREATININE FOR GFR 0.77 MG/DL (0.55-1.30); GLOMERULAR FILTRATION RATE > 60.0 (>60); GLUCOSE, FASTING 81 MG/DL (60-100); POTASSIUM SERUM 4.1 MMOL/L (3.5-5.1); SODIUM LEVEL 141 MMOL/L (136-145)
== END ==
LOC: M LAB 07:56
PROVIDERS: ATTEND Nurse Practitioner Adult Health
DX: R00.0 Tachycardia, unspecified (principal)

== ENCOUNTER → 2024-06-21 | Outpatient (CLI) | payer BC ==
[2024-06-21 14:40] LABS: BASO # 0.1 10^3/uL (0.0-0.2); BASO % 1.4 % (0.0-1.0); EOS # 0.2 10^3/uL (0.0-0.5); EOS % 1.9 % (0.0-3.0); HEMATOCRIT 35.6 % (36.0-47.0); HEMOGLOBIN 10.8 g/dl (12.0-15.5); LYMPH # 1.7 10^3/uL (1.5-5.0); LYMPH % 19.3 % (24.0-44.0); MEAN CORPUSCULAR HEMOGLOBIN 24.9 pg (27.0-33.0); MEAN CORPUSCULAR HGB CONC 30.3 g/dl (32.0-36.5); MONO # 0.7 10^3/uL (0.0-0.8); MONO % 8.4 % (2.0-8.0); NEUTROPHILS # 6.1 10^3/uL (1.5-8.5); NEUTROPHILS % 68.8 % (36.0-66.0); PLATELET COUNT, AUTOMATED 256 10^3/uL (150-450); RED BLOOD COUNT 4.34 10^6/uL (4.00-5.40); WHITE BLOOD COUNT 8.8 10^3/uL (4.0-10.0)
[2024-06-21 15:10] LABS: PERCENT SATURATION 4.9 % (13.2-45.0)
[2024-06-21 15:11] LABS: FERRITIN 3.2 NG/ML (7.3-270.7)
[2024-06-21 15:13] LABS: FOLATE 15.5 NG/ML (>5.4)
== END ==
LOC: M LAB 13:47
PROVIDERS: ATTEND Nurse Practitioner Adult Health
DX: D64.9 Anemia, unspecified (principal)

== ENCOUNTER 2024-07-17 10:48 | Outpatient (CLI) | payer BC ==
[~2024-07-17] VITALS: Ht 144.8 cm; Wt 55.4 kg
[~2024-07-17 10:48] MED LIST changes: +ALBUTEROL SULFATE 2.5MG/0.5ML INH NEB SOLN INH PRN; +EPINEPHrine INJ 1 MG/ML 1ML AMP IM PRN; +diphenhydrAMINE 50MG/ML VIAL IV PRN; +methylPREDNISolone 125MG 2ML VIAL IV PRN
[2024-07-17 10:55] VITALS: BP 114/57; O2SAT 99
[2024-07-17] MEDS: FERRIC CARBOXYMALTOSE 750 MG (VIAL MATE) IN 100ML NS IV ONE (11:14)
[2024-07-17 11:50] VITALS: BP 114/66; O2SAT 99
== END 2024-07-17 11:52 ==
LOC: M INFU 10:48
PROVIDERS: ATTEND Nurse Practitioner Adult Health
DX: D64.9 Anemia, unspecified (principal); Z88.0 Allergy status to penicillin
CPT/HCPCS: 96365; J1439

== ENCOUNTER 2024-07-24 09:15 | Outpatient (CLI) | payer BC ==
[~2024-07-24] VITALS: Ht 144.8 cm; Wt 54.5 kg
[2024-07-24 09:18] VITALS: BP 112/72; O2SAT 97
[2024-07-24] MEDS: FERRIC CARBOXYMALTOSE 750 MG (VIAL MATE) IN 100ML NS IV ONE (09:25)
[2024-07-24 09:45] VITALS: BP 114/79; O2SAT 96
== END 2024-07-24 10:00 ==
LOC: M INFU 09:15
PROVIDERS: ATTEND Nurse Practitioner Adult Health
DX: D64.9 Anemia, unspecified (principal); Z88.0 Allergy status to penicillin
CPT/HCPCS: 96365; J1439

== ENCOUNTER → 2024-09-02 | Outpatient (CLI) | payer BC ==
[~2024-09-02] MED LIST changes: -ALBUTEROL SULFATE 2.5MG/0.5ML INH NEB SOLN INH PRN; -EPINEPHrine INJ 1 MG/ML 1ML AMP IM PRN; -diphenhydrAMINE 50MG/ML VIAL IV PRN; -methylPREDNISolone 125MG 2ML VIAL IV PRN
[2024-09-02 08:54] LABS: BLOOD UREA NITROGEN 10 MG/DL (9-23); CARBON DIOXIDE LEVEL 28 MMOL/L (20-31); CHLORIDE LEVEL 106 MMOL/L (98-107); CREATININE FOR GFR 0.67 MG/DL (0.55-1.30); GLOMERULAR FILTRATION RATE > 90.0 (>60); GLUCOSE, FASTING 73 MG/DL (60-100); POTASSIUM SERUM 4.4 MMOL/L (3.5-5.1); SODIUM LEVEL 143 MMOL/L (136-145)
== END ==
LOC: M LAB 07:10
PROVIDERS: ATTEND Nurse Practitioner Family
DX: D35.2 Benign neoplasm of pituitary gland (principal)

== ENCOUNTER → 2024-09-02 | Outpatient (CLI) | payer BC ==
[2024-09-02 08:22] LABS: BASO # 0.1 10^3/uL (0.0-0.2); BASO % 1.2 % (0.0-1.0); EOS # 0.2 10^3/uL (0.0-0.5); HEMATOCRIT 45.1 % (36.0-47.0); HEMOGLOBIN 14.7 g/dl (12.0-15.5); LYMPH # 1.7 10^3/uL (1.5-5.0); MEAN CORPUSCULAR HEMOGLOBIN 29.9 pg (27.0-33.0); MEAN CORPUSCULAR HGB CONC 32.6 g/dl (32.0-36.5); MEAN CORPUSCULAR VOLUME 91.9 fl (80.0-96.0); MONO # 0.5 10^3/uL (0.0-0.8); MONO % 6.8 % (2.0-8.0); NEUTROPHILS % 66.7 % (36.0-66.0); PLATELET COUNT, AUTOMATED 249 10^3/uL (150-450); RED BLOOD COUNT 4.91 10^6/uL (4.00-5.40); WHITE BLOOD COUNT 7.5 10^3/uL (4.0-10.0)
[2024-09-02 08:56] LABS: ALBUMIN 4.1 G/DL (3.2-5.2); ALKALINE PHOSPHATASE 45 U/L (35-104); ALT/SGPT 13 U/L (7.0-40); AST/SGOT < 8 U/L (<34); BILIRUBIN,TOTAL 0.4 MG/DL (0.3-1.2); BLOOD UREA NITROGEN 10 MG/DL (9-23); CALCIUM LEVEL 9.1 MG/DL (8.5-10.1); CARBON DIOXIDE LEVEL 27 MMOL/L (20-31); CHLORIDE LEVEL 106 MMOL/L (98-107); CREATININE FOR GFR 0.65 MG/DL (0.55-1.30); GLOMERULAR FILTRATION RATE > 90.0 (>60); GLUCOSE, FASTING 71 MG/DL (60-100); IRON (FE) 97 UG/DL (50-170); PERCENT SATURATION 37.2 % (13.2-45.0); POTASSIUM SERUM 4.2 MMOL/L (3.5-5.1); SODIUM LEVEL 141 MMOL/L (136-145); TOTAL IRON BINDING CAPACITY 261 UG/DL (250-425); TOTAL PROTEIN 6.8 G/DL (5.7-8.2)
[2024-09-02 08:58] LABS: FERRITIN 95.8 NG/ML (7.3-270.7)
[2024-09-02 08:59] LABS: VITAMIN B12 LEVEL 539 PG/ML (211-911)
== END ==
LOC: M LAB 07:11
PROVIDERS: ATTEND Physician Assistant
DX: D64.9 Anemia, unspecified (principal)

== ENCOUNTER → 2024-10-03 | Outpatient (CLI) | payer BC | LOC: M CARPUL 08:19 | PROVIDERS: ATTEND Registered Nurse | DX: R07.9 Chest pain, unspecified (principal) ==

== ENCOUNTER → 2024-12-04 | Outpatient (CLI) | payer BC ==
[2024-12-04 08:17] LABS: CALCIUM LEVEL 8.9 MG/DL (8.5-10.1); CARBON DIOXIDE LEVEL 29 MMOL/L (20-31); CHLORIDE LEVEL 105 MMOL/L (98-107); CREATININE FOR GFR 0.70 MG/DL (0.55-1.30); GLOMERULAR FILTRATION RATE > 90.0 (>60); POTASSIUM SERUM 4.0 MMOL/L (3.5-5.1); SODIUM LEVEL 142 MMOL/L (136-145)
== END ==
LOC: M LAB 06:50
PROVIDERS: ATTEND Nurse Practitioner Family
DX: D35.2 Benign neoplasm of pituitary gland (principal)

== ENCOUNTER → 2024-12-04 | Outpatient (CLI) | payer BC ==
[2024-12-04 07:50] LABS: BASO # 0.1 10^3/uL (0.0-0.2); BASO % 0.8 % (0.0-1.0); EOS # 0.2 10^3/uL (0.0-0.5); EOS % 2.3 % (0.0-3.0); LYMPH # 1.5 10^3/uL (1.5-5.0); LYMPH % 16.4 % (24.0-44.0); MONO # 0.5 10^3/uL (0.0-0.8); MONO % 6.1 % (2.0-8.0); NEUTROPHILS # 6.6 10^3/uL (1.5-8.5); NEUTROPHILS % 73.9 % (36.0-66.0); PLATELET COUNT, AUTOMATED 241 10^3/uL (150-450)
[2024-12-04 08:18] LABS: ALT/SGPT 14 U/L (7.0-40); AST/SGOT 12 U/L (<34); CALCIUM LEVEL 8.8 MG/DL (8.5-10.1); CARBON DIOXIDE LEVEL 29 MMOL/L (20-31); CHLORIDE LEVEL 106 MMOL/L (98-107); CREATININE FOR GFR 0.69 MG/DL (0.55-1.30); GLOMERULAR FILTRATION RATE > 90.0 (>60); IRON (FE) 137 UG/DL (50-170); PERCENT SATURATION 56.1 % (13.2-45.0); POTASSIUM SERUM 3.8 MMOL/L (3.5-5.1); SODIUM LEVEL 143 MMOL/L (136-145)
[2024-12-04 08:20] LABS: VITAMIN B12 LEVEL 578 PG/ML (211-911)
== END ==
LOC: M LAB 06:42
PROVIDERS: ATTEND Physician Assistant
DX: D64.9 Anemia, unspecified (principal)

== ENCOUNTER → 2025-01-16 | Outpatient (CLI) | payer BC | LOC: M SLEEP HO 10:54 | PROVIDERS: ATTEND Physician Assistant | DX: G47.10 Hypersomnia, unspecified (principal); R06.83 Snoring ==

== ENCOUNTER → 2025-01-27 | Outpatient (REF) | payer BC ==
[2025-01-29 13:24] LABS: HPV APTIMA Not Detected (Not Detected)
== END ==
LOC: M SFHCWAGY 12:54
PROVIDERS: ATTEND Obstetrics & Gynecology
DX: Z12.4 Encounter for screening for malignant neoplasm of cervix (principal); Z77.9 Other contact with and (suspected) exposures hazardous to health; R87.612 Low grade squamous intraepithelial lesion on cytologic smear of cervix (LGSIL)
CPT/HCPCS: 87624; G0123

== ENCOUNTER → 2025-03-24 | Outpatient (CLI) | payer BC ==
[2025-03-24 06:59] LABS: BASO # 0.1 10^3/uL (0.0-0.2); BASO % 1.2 % (0.0-1.0); EOS # 0.2 10^3/uL (0.0-0.5); EOS % 2.2 % (0.0-3.0); LYMPH # 1.5 10^3/uL (1.5-5.0); LYMPH % 19.9 % (24.0-44.0); MONO # 0.6 10^3/uL (0.0-0.8); MONO % 8.1 % (2.0-8.0); NEUTROPHILS # 5.0 10^3/uL (1.5-8.5); NEUTROPHILS % 68.2 % (36.0-66.0); PLATELET COUNT, AUTOMATED 254 10^3/uL (150-450)
[2025-03-24 07:21] LABS: IRON (FE) 110 UG/DL (50-170)
[2025-03-24 07:22] LABS: ALT/SGPT 16 U/L (7.0-40); AST/SGOT 11 U/L (<34); CALCIUM LEVEL 8.8 MG/DL (8.5-10.1); CARBON DIOXIDE LEVEL 29 MMOL/L (20-31); CHLORIDE LEVEL 103 MMOL/L (98-107); CREATININE FOR GFR 0.68 MG/DL (0.55-1.30); FREE T4 1.21 NG/DL (0.89-1.76); GLOMERULAR FILTRATION RATE > 90.0 (>60); MAGNESIUM LEVEL 2.1 MG/DL (1.8-2.4); PERCENT SATURATION 41.2 % (13.2-45.0); POTASSIUM SERUM 3.9 MMOL/L (3.5-5.1); SODIUM LEVEL 139 MMOL/L (136-145)
[2025-03-24 07:24] LABS: PROLACTIN 2.21 NG/ML; VITAMIN B12 LEVEL 635 PG/ML (211-911)
[2025-03-24 07:25] LABS: C REACTIVE PROTEIN QUANTITATIV < 0.50 MG/DL (<1.0)
== END ==
LOC: M LAB 06:16
PROVIDERS: ATTEND Physician Assistant
DX: D64.9 Anemia, unspecified (principal); Q85.01 Neurofibromatosis, type 1; D35.2 Benign neoplasm of pituitary gland; R97.20 Elevated prostate specific antigen [PSA]

== ENCOUNTER → 2025-03-24 | Outpatient (CLI) | payer BC ==
[2025-03-24 07:18] LABS: CALCIUM LEVEL 8.7 MG/DL (8.5-10.1); CARBON DIOXIDE LEVEL 30 MMOL/L (20-31); CHLORIDE LEVEL 105 MMOL/L (98-107); CREATININE FOR GFR 0.67 MG/DL (0.55-1.30); GLOMERULAR FILTRATION RATE > 90.0 (>60); POTASSIUM SERUM 4.1 MMOL/L (3.5-5.1); SODIUM LEVEL 142 MMOL/L (136-145)
== END ==
LOC: M LAB 06:18
PROVIDERS: ATTEND Nurse Practitioner Family
DX: D35.2 Benign neoplasm of pituitary gland (principal)